=== PATIENT | male | born 1980 | race Two or more races ===

== ENCOUNTER 2024-02-22 12:38 | Outpatient (CLI) | payer OTHER ==
--- NOTE | 2024-02-22 13:25 | Sleep Patient Instructions ---
Sleep Center Visit Summary - Patient Visit Information Reason for Visit: Initial consult for evaluation of sleep disordered breathing and other sleep issues. - Patient Instructions Instructions Attached: Sleep Study Additional Instructions: You will be completing a sleep study, either an in-lab polysomnography (PSG) or home sleep study (HST). You will follow-up in the sleep care office after the sleep study is completed to hear the results and talk about therapy, if needed. You will be called by our office staff to schedule this appointment, but you may contact us with any questions. - Clinic Information Contact: [facility] [address] [place] [address] [email or web address] T: [phone]
--- NOTE | 2024-02-22 13:28 | SLEEP CARE CONSULTATION ---
Information from patient questionnaire entered by Bárbara Mackay. I have reviewed and concur with the information entered by Bárbara Mackay. This document represents the service I personally performed and the decisions made by me, Joana Hdz ARNP. History of Present Illness Service Date and Time: 02/22/2024 1238 Reason for Visit: New patient Chief Complaint: reports: Unrefreshed sleep, Snoring, Fatigue Date of Onset: Years Usual bedtime: 11 PM - 12 AM Time it takes to fall asleep: 45 - 60 mins Snores at night: Yes (Supposedly) Observed to quit breathing while asleep: No (I don't know) Sleeps alone due to snoring: Yes Number of times waking at night: 2 - 3 Reasons for waking at night: reports: Snoring, Bathroom, Other (Unknown reason, cats, hot). denies: Choking, Gasping for air Toss, Turn, or Twitch while sleeping: Yes Recalls having dreams: No Usually gets out of bed at: 6 - 7 AM Feels refreshed in the morning: No Morning headache: Yes (3 days a week; Usually resolves after taking Tylenol/Excedrin) Sleepy or fatigued during the day: Yes Ever fallen asleep while driving: No Takes day naps: Yes (almost every day, last 1-1.5 hours) Dreams during day naps: No Prior sleep studies: No Additional HPI information: I had the pleasure of seeing LILLY ASIF today regarding the possibility of him having a sleep disorder. His current complaints are fatigue, snoring and unr efreshed sleep. He says his that he snores. He knows he sleeps with his mouth open which causes very dry mouth regularly. He has had others when on the boat who have told him he is snoring. But, no one has told him that he stops breathing. He wakes up feeling somewhat refreshed. - Parasomnia Symptoms Ever been unable to move upon waking from sleep: Yes (only once) Walks in sleep: No (I don't know) Talks in sleep: Yes (Supposedly) Ever acted out dreams in sleep: No Ever felt weak in the knees when startled or emotional: Yes Bothered by creepy, crawly, restless sensations in legs: Yes (night mostly) Problems with memory or concentration: No Subjective Initial [place] Sleepiness Scale score: 17 (02/22/2024) Past Medical History Past Medical History: reports: Other (migraines) Social History The patient's occupation is active duty in the [email or web address]. Patient is and lives in [place]. Have you smoked in the past 12 months: No Cigarettes per day (20/pack): 10 Years of smokin (10 + years) Quit date: 2010 Smoking Pack Years: 5.0 Alcohol use: No Caffeine use: No Family History Family history of sleep disordered breathing: Yes Family Hx Sleep Apnea: Father: Snoring, Sleep apnea - Treated, Grandparent: Snoring Allergies and Home Medications Known drug allergies: No Drug allergies reviewed: Yes Home medication list reviewed: Yes (as listed) Allergy and home medication list: Allergies No Known Drug Allergies Allergy (Verified 02/22/24 13:18) Home Medications Sumatriptan See Rx Instructions .ROUTE .COMPLEX 02/22/24 [History] Review of Systems Weight gain over past 5 years: 20 - 30 Cardiovascular: denies: high blood pressure Gastrointestinal: denies: heartburn Neurological: reports: headaches Psychiatric: denies: anxiety, depression Ear/Nose/Throat: reports: nasal congestion, dry mouth/throat, wisdom teeth removed. denies: tonsillectomy Endocrine: reports: too hot or cold, excessive thirst Physical Exam Vital signs obtained and entered by: Joana Rashid NP Blood Pressure: 122/89 Cuff size: long (right arm) Heart Rate: 87 O2 Saturation: 97 Height: 5 ft 7 in Weight: 242 lb 9.6 oz Body Mass Index: 38.0 BMI Classification: Obese Neck circumference: 18.5 Nostrils: patent to airflow Mouth and throat: narrow oropharynx Soft palate: long Hard palate: normal Uvula: normal Uvula visualization: 0% Mallampati Class IV Tongue: enlarged in size with teeth rutherford on lateral edges Tonsils: 2+ Neck: normal w/o lymphadenopathy or thyromegaly Heart: regular rate and rhythm Lungs: clear bilaterally Impression and Plan 1. Suspected Obstructive Sleep Apnea-Hypopnea Syndrome, as suggested by a history of loud and irregular snoring, morning headache, unrefreshed sleep, and excessive daytime sleepiness. Narrow oropharynx and obesity are common predisposing factors for obstructive sleep apnea-hypopnea syndrome. I recommend proceeding to polysomnography to confirm the diagnosis and to assess severity. If the patient has significant sleep disordered breathing, a manual CPAP titration study will also be performed to find the optimal treatment pressure. I informed the patient of what the sleep studies involve and after some discussion, obtained agreement to proceed. The pathophysiology of obstructive sleep apnea-hypopnea syndrome was discussed with the patient and health risks of cardiovascular and cerebrovascular disease if not treated. Risks of drowsy driving discussed in detail and patient advised to avoid long distance driving and to fur puller at the first sign of drowsiness. Patient agreed to plan. * Schedule polysomnography +- manual CPAP titration study and return in 1-2 weeks after the study to discuss result and initiate therapy. * Avoid long distance driving or driving when feeling sleepy. * Avoid alcohol, sedative and muscle relaxant around bedtime. * Attempt to lose weight. * Review instructions provided by trained office staff on how to prepare for the sleep study. * Return for follow-up after sleep study completed. Counseling Topics: Weight loss health impact Plan: PSG/HST and follow up Visit Type: In Office Time Spent with Patient (minutes): 30 Provider Statement: I spent 100% of the Face to Face Visit with the patient with greater than 50% spent counseling the patient and coordination of care.
[2024-02-22 13:29] VITALS: BP 122/89; O2SAT 97
== END 2024-02-22 12:39 | disposition home or self-care (01) ==
LOC: SC 12:38
PROVIDERS: ATTEND Nurse Practitioner Family
DX: R06.83 Snoring (principal); G47.8 Other sleep disorders; R53.83 Other fatigue; R51.9 Headache, unspecified; G47.10 Hypersomnia, unspecified; E66.9 Obesity, unspecified; Z68.38 Body mass index [BMI] 38.0-38.9, adult; Z87.891 Personal history of nicotine dependence
CPT/HCPCS: 99203; 99212